=== PATIENT | female | born 1980 | race Caucasian/White ===

== ENCOUNTER 2020-12-26 22:58 | Emergency (ER) | payer OTHER, SELFPAY ==
[2020-12-26 23:14] VITALS: PULSE 107; O2SAT 99
[2020-12-26 23:15] VITALS: BP 192/96; PULSE 103; O2SAT 100
[2020-12-26 23:30] VITALS: BP 151/77; PULSE 81; O2SAT 100
[2020-12-26 23:43] VITALS: BP 192/96; PULSE 104; RESP 17; TEMP 37.1; O2SAT 100; BMI 26.6
[2020-12-27] VITALS (10 sets, daily range): BP systolic 149–167; BP diastolic 74–104; PULSE 63–83; O2SAT 97–98
[2020-12-27 00:06] LABS: Add Manual Diff / Slide Review NO; Basophils Absolute Auto 100 /uL (0-100); Basophils Percent Auto 0.8 % (0-2); Eosinophils Absolute Auto 100 /uL (0-450); Eosinophils Percent Auto 0.9 % (2-4); Hematocrit 39.9 % (36-46); Hemoglobin 13.7 g/dL (12.0-16.0); Lymphocytes Absolute Auto 1300 /uL (1100-4500); Lymphocytes Percent Auto 18.7 % (25-40); Mean Corpuscular HGB Conc 34.3 % (30-36); Mean Corpuscular Hemoglobin 31.5 PG (26-34); Mean Corpuscular Volume 91.7 fL (80-100); Monocytes Absolute Auto 300 /uL (0-900); Monocytes Percent Auto 5.1 % (3-14); Neutrophils Absolute Auto 5000 /uL (1500-7000); Neutrophils Percent Auto 74.5 % (50-75); Platelet Count 233 X10^3/uL (150-400); Red Blood Cell Count 4.35 X10^6/uL (4.0-5.2); Red Cell Distribution Width 12.4 % (11.6-14.8); White Blood Cell Count 6.7 X10^3/uL (4.5-11.0)
[2020-12-27 00:15] LABS: Alanine Aminotransferase 20 IU/L (<35); Albumin 4.2 g/dL (3.5-5.0); Albumin Globulin Ratio 1.8 (1.0-2.8); Alkaline Phosphatase 39 U/L (38-126); Aspartate Aminotransferase 24 IU/L (14-36); BUN Creatinine Ratio 18.1 (6-22); Bilirubin Total 0.2 mg/dL (0.2-1.3); Blood Urea Nitrogen 17 mg/dL (7-17); Calcium 9.2 mg/dL (8.4-10.2); Carbon Dioxide 25 mmol/L (22-32); Chloride 105 mmol/L (98-107); Estimated Glomerular Filt Rate > 60.0 mL/min (>60); Globulin 2.4 g/dL (1.7-4.1); Glucose 102 mg/dL (70-100); HEMOLYSIS < 15 (0-50); Lipase 186 U/L (23-300); Potassium 3.6 mmol/L (3.4-5.1); Sodium 139 mmol/L (137-145); Total Protein 6.6 g/dL (6.3-8.2)
[2020-12-27 00:18] LABS: PTT Partial Thromboplastin Tim 31 SECONDS (26.4-36.2); Prothrombin Time 10.9 SECONDS (10.1-12.7)
[2020-12-27 00:22] LABS: Bacteria Urine None Seen; WBC Urine None Seen (0-5/HPF)
[2020-12-27 00:33] LABS: Culture Indicated Urine Cult Not Indicated; RBC Urine 0-1/HPF (0-5/HPF)
--- NOTE | 2020-12-27 00:39 | ED_ITS ---
HPI - Abdominal Pain General Chief Complaint: Abdominal Pain Stated Complaint: high BP, abdominal pain, palpitations Time Seen by Provider: 12/26/20 23:51 Source: patient Mode of arrival: Ambulatory Limitations: no limitations History of Present Illness HPI narrative: 40-year-old woman with a history of chronic back pain, irritable bowel syndrome slightly elevated blood pressures that she is monitoring recently, presents with a ?wrenching twisting cramping ?right abdominal pain that is been intermittently bothering her over the course of the day. At its worst it lasts for a minute or so and takes her breath away radiates from the right side of her abdomen flank toward her back and then continues with a dull discomfort never entirely resolving. At its worse she noticed that she was having some palpitations and a sensation her heart was racing and did notice a blood pressure is significantly elevated at 180 1/104. She states that she had a similar episode about a week ago that has resolved completely. She notes that she has had dark urine despite increasing water intake and today has had recurrent episodes of urgency with minimal urinary output. She does note she had a kidney stone 5 years ago and isn't sure that this feels the same. She does note that it feels entirely different from both her back pain and irritable bowel syndrome symptoms. She denies fever, cough, dyspnea, constipation, lower extremity edema, headache. Related Data Allergies Allergy/AdvReac Type Severity Reaction Status Date / Time latex Allergy Verified 12/26/20 23:42 phenobarbital Allergy Hives Verified 12/26/20 23:42 oxycodone AdvReac Nausea Verified 12/26/20 23:42 Review of Systems Review of Systems Narrative: Remainder of complete review of systems is otherwise unremarkable except for that included in the HPI. Patient History Medical History Chronic back pain Irritable bowel syndrome Kidney stone Surgical History Status post cholecystectomy Exam Narrative Exam Narrative: General: Healthy appearing, in no acute distress. Able to give a complete and coherent history. Well-nourished well-developed HEENT: Moist mucous membranes, normal sclera with reactive pupils, Respiratory: Lungs are clear to auscultation, no wheezing no rales no rhonchi. Full and symmetrical air movement Cardiac: Regular rate and rhythm no murmurs no bruits Abdomen: Soft, nontender, good bowel tones, right flank pain Skin: Warm and dry, no rashes Neurologic: Grossly neurologically intact with no obvious asymmetries or abnormalities Extremities: No trauma, well perfused Psych: Cooperative, appropriate insight and affect Initial Vital Signs Initial Vital Signs: Vital Signs Pulse Rate 107 H 12/26/20 23:14 Pulse Oximetry 99 12/26/20 23:14 Course Orders Ordered: ED Orders 12/26/20 23:47 EKG-12 Lead Stat 12/26/20 23:55 Complete Blood Count AUTO DIFF Stat Comprehensive Metabolic Panel Stat Lipase Stat Partial Thromboplastin Time Stat Prothrombin Time INR Stat 12/27/20 00:13 Urine Microscopic Stat 12/27/20 00:51 CT kidney ureter bladder (KUB) Stat Discontinued Medications Ketorolac Tromethamine (Ketorolac 30 Mg/Ml Vial) 15 mg IV NOW ONE Stop: 12/27/20 01:51 Last Admin: 12/27/20 01:56 Dose: 15 mg Documented by: REGI Vital Signs Vital signs: Vital Signs - 8 hr 12/26/20 23:14 12/26/20 23:15 12/26/20 23:30 Temperature Pulse Rate 107 H 103 H 81 Respiratory Rate Blood Pressure 192/96 H 151/77 H Pulse Oximetry 99 100 100 12/26/20 23:43 12/27/20 00:00 12/27/20 00:30 Temperature 98.8 F Pulse Rate 104 H 68 64 Respiratory Rate 17 Blood Pressure 192/96 H 166/80 H 152/77 H Pulse Oximetry 100 98 98 12/27/20 01:00 12/27/20 01:30 12/27/20 01:49 Temperature Pulse Rate 63 83 73 Respiratory Rate Blood Pressure 149/74 H Pulse Oximetry 97 98 97 12/27/20 01:50 Temperature Pulse Rate Respiratory Rate Blood Pressure 160/85 H Pulse Oximetry MDM - Abdominal Pain Medical Records Attestation: I reviewed the patient's medical records. Lab Data Attestation: I reviewed the patient's lab results. Result diagrams: 12/26/20 23:55 12/26/20 23:55 Labs: Lab Results 12/26/20 12/26/20 12/26/20 Range/Units 23:25 23:55 23:55 WBC 6.7 (4.5-11.0) X10^3/uL RBC 4.35 (4.0-5.2) X10^6/uL Hgb 13.7 (12.0-16.0) g/dL Hct 39.9 (36-46) % MCV 91.7 (80-100) fL MCH 31.5 (26-34) PG MCHC 34.3 (30-36) % RDW 12.4 (11.6-14.8) % Plt Count 233 (150-400) X10^3/uL Neut % (Auto) 74.5 (50-75) % Lymph % (Auto) 18.7 L (25-40) % Banner % (Auto) 5.1 (3-14) % Eos % (Auto) 0.9 L (2-4) % Baso % (Auto) 0.8 (0-2) % Neut # (Auto) 5000 (4726-1626) /uL Lymph # (Auto) 1300 (5901-1782) /uL Banner # (Auto) 300 (0-900) /uL Eos # (Auto) 100 (0-450) /uL Baso # (Auto) 100 (0-100) /uL PT 10.9 (10.1-12.7) SECONDS INR 1.0 (0.9-1.3) APTT 31 (26.4-36.2) SECONDS Sodium (137-145) mmol/L Potassium (3.4-5.1) mmol/L Chloride (98-107) mmol/L Carbon Dioxide (22-32) mmol/L BUN (7-17) mg/dL Creatinine (0.52-1.04) mg/dL Estimated GFR (>60) mL/min BUN/Creatinine Ratio (6-22) Glucose (70-100) mg/dL Calcium (8.4-10.2) mg/dL Total Bilirubin (0.2-1.3) mg/dL AST (14-36) IU/L ALT (<35) IU/L Alkaline Phosphatase (38-126) U/L Total Protein (6.3-8.2) g/dL Albumin (3.5-5.0) g/dL Globulin (1.7-4.1) g/dL Albumin/Globulin Ratio (1.0-2.8) Lipase (23-300) U/L Urine RBC 0-1/hpf (0-5/HPF) Urine WBC None seen (0-5/HPF) Urine Bacteria None seen (None) Ur Culture Indicated? Cult not indicated 12/26/20 Range/Units 23:55 WBC (4.5-11.0) X10^3/uL RBC (4.0-5.2) X10^6/uL Hgb (12.0-16.0) g/dL Hct (36-46) % MCV (80-100) fL MCH (26-34) PG MCHC (30-36) % RDW (11.6-14.8) % Plt Count (150-400) X10^3/uL Neut % (Auto) (50-75) % Lymph % (Auto) (25-40) % Banner % (Auto) (3-14) % Eos % (Auto) (2-4) % Baso % (Auto) (0-2) % Neut # (Auto) (4279-4077) /uL Lymph # (Auto) (6281-3525) /uL Banner # (Auto) (0-900) /uL Eos # (Auto) (0-450) /uL Baso # (Auto) (0-100) /uL PT (10.1-12.7) SECONDS INR (0.9-1.3) APTT (26.4-36.2) SECONDS Sodium 139 (137-145) mmol/L Potassium 3.6 (3.4-5.1) mmol/L Chloride 105 (98-107) mmol/L Carbon Dioxide 25 (22-32) mmol/L BUN 17 (7-17) mg/dL Creatinine 0.94 (0.52-1.04) mg/dL Estimated GFR > 60.0 (>60) mL/min BUN/Creatinine Ratio 18.1 (6-22) Glucose 102 H (70-100) mg/dL Calcium 9.2 (8.4-10.2) mg/dL Total Bilirubin 0.2 (0.2-1.3) mg/dL AST 24 (14-36) IU/L ALT 20 (<35) IU/L Alkaline Phosphatase 39 (38-126) U/L Total Protein 6.6 (6.3-8.2) g/dL Albumin 4.2 (3.5-5.0) g/dL Globulin 2.4 (1.7-4.1) g/dL Albumin/Globulin Ratio 1.8 (1.0-2.8) Lipase 186 (23-300) U/L Urine RBC (0-5/HPF) Urine WBC (0-5/HPF) Urine Bacteria (None) Ur Culture Indicated? Point of care testing: Urine Dip Bedside Urine Glucose Negative Bedside Urine Bilirubin - Negative Bedside Urine Ketone - Negative Urine Specific [place] 1.010 Bedside Urine Occult Blood +/- Bedside Urine pH 6.0 Bedside Urine Protein - Negative Bedside Urine Urobilinogen - Negative Bedside Urine Nitrite - Negative Bedside Urine Leukocytes - Negative Esterase Imaging Data CT scan - abdomen/pelvis: Radiologist's Impression: 3 mm distal right ureteral calculus located at the right UVJ Distended cecum in the right side of the pelvis Hector Adams MD [facility] [place] Narrative Medical decision making narrative: 40-year-old woman with a long history of irritable bowel syndrome some of it opioid related for chronic pain medications. She has been seen by gastroenterology and is scheduled for a colonoscopy in January. She presents with increasing right-sided flank and abdominal pain over the course of today. Describes it is different from her typical irritable bowel/constipation pain. She also notes that her blood pressure is been significantly elevated today which has not been a chronic issue for her CT scan does show a 3 mm stone at the right UVJ. Because it is so low I do not think that Flomax will add much benefit at this point. Pain was controlled with Toradol. Significant obstipation, talked about medications might be helpful. She has tried the myriad of options. Notes that she has not tried magnesium citrate as a 1 time dose but is willing to do so see if that makes a difference as well. Elevated blood pressure in the setting of kidney stone and severe obstipation. Have recommended that she follow blood pressures at home but will not treat this today as I suspect it is related to her acute issues rather than underlying hypertension. She has an appointment scheduled with her primary care physician to review this as well as recent lab work next week. At this point she is safe for home discharge Discharge Plan Departure Patient Disposition: Home Clinical Impression: Kidney stone, Obstipation, Elevated blood pressure reading Irritable bowel syndrome Qualifiers: Irritable bowel syndrome type: with constipation Qualified Code(s): K58.1 - Irritable bowel syndrome with constipation Instructions: DI for Kidney Stones Activity Restrictions/Additional Instructions: Thank you for coming in today I do believe your acute issues or due to a 3 mm kidney stone that looks like it is about to drop in to your bladder. I should continue to pass without difficulty. Incidentally, you do have obstipation, severe constipation and I think that also is contributing to your overall discomfort as well as the elevated blood pressure reading noted today. 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 Will send you home with a bottle of magnesium citrate, drink this tomorrow morning and see if that is able to help you move your bowels and try to relieve some of the stool load currently there. If you have worsening symptoms or new findings, please feel free to return to the ER Referrals: Ermelinda Ignacio ARNP, [employer]IN[employer]ER[employer] [Primary Care Provider] -
--- NOTE | 2020-12-27 00:51 | DI.CT.S_ITS ---
PROCEDURE: CT KIDNEY URETER BLADDER (KUB) INDICATIONS: Right flank pain, suspect kidney stone TECHNIQUE: Noncontrast 5 mm thick sections acquired from the diaphragms to the symphysis. 5 mm thick coronal and sagittal reformats were then performed. For radiation dose reduction, the following was used: automated exposure control, adjustment of mA and/or kV according to patient size. COMPARISON: [facility], CR, PELVIS WITH BILATERAL HIPS, 01/18/2015, 13:25. FINDINGS: Image quality: Excellent. Lung bases: Lung bases are clear. Heart size is normal. Urinary system: There is a 4 mm stone at the right ureterovesical junction. Trace right hydronephrosis is present. Small nonobstructive stones are seen bilaterally measuring 1 mm in left kidney and 2 mm in right kidney. Both kidneys are normal in size. Both ureters appear non-dilated throughout their expected courses. Bladder is semi contracted. Other solid organs: Liver is normal in size. Gallbladder is surgically absent. Pancreas is normal in contours. Spleen is normal in size. No adrenal nodules. Peritoneum and bowel: Unenhanced bowel loops demonstrate normal wall thickness and caliber. There is a moderate amount of stool in colon. No free fluid or air. Nodes and vessels: No retroperitoneal or mesenteric adenopathy by size criteria. Aorta and inferior vena cava are normal in caliber. Abdominal wall: No ventral hernias. Pelvis: Uterus and ovaries are unremarkable. No free pelvic fluid. No inguinal hernias or adenopathy. Bones: No vertebral body compression fractures. Degenerative changes in lumbar spine no are noted. There is a 4 mm sclerotic lesion in the right sacral ala, probably a small bone island. IMPRESSION: 1. A 4 mm stone at the right UVJ. There is trace right hydronephrosis. 2. Bilateral nonobstructive renal calculi. No significant discrepancy with the director construction services radiology preliminary report. Dictated by: Keren Howard M.D. on 12/27/2020 at 8:42 Approved by: Keren Howard M.D. on 12/27/2020 at 8:48
[2020-12-27] MEDS: KETOROLAC 30 MG/ML VIAL 15 MG IV (01:56)
[2020-12-27] MEDS: MAGNESIUM CITRATE 300 ML SOLUTION PO (02:58)
== END 2020-12-27 03:01 | disposition home or self-care (01) ==
PROVIDERS: Emergency Provider Emergency Medicine; PCP Nurse Practitioner Family
DX: N20.0 Calculus of kidney (principal); K58.1 Irritable bowel syndrome with constipation; R00.2 Palpitations
CPT/HCPCS: 36415; 74176; 80053; 81003; 81015; 81025; 83690; 85025; 85610; 85730; 93005; 93010; 96374; 99284; J1885